=== PATIENT | male | born 1970 | race Caucasian/White ===

== ENCOUNTER 2017-08-21 09:28 | Emergency (ER) | payer BC ==
[~2017-08-21] VITALS: Ht 182.9 cm; Wt 72.6 kg
[~2017-08-21 09:28] MED LIST: AMOXIL 875 MG875 M1 PO; GENTAMICIN SU3 MG/ML OPHTHALMIC; HYDROCODONE-AP1 EAC6 PO; LISINOPRIL20 MG PO; MEDROLDOSEPACK PO; NOHOMEMEDICATIONS; NORCO 5-325 TA1 EACH PO; NORVASC 5 MG TAB5 MG PO; PENICILLIN V P500 MG PO; PROAIR HFA8.5 GM IH; PROAIR HFA8.5 GM INH; TESSALON200 MG PO; TOBRAMYCIN SULFA5 M1 OP; ZPAK PO
[2017-08-21] MEDS ORDERED: TRAZODONE HCL50 MG PO (09:38)
[2017-08-21 10:16] LABS: HEMATOCRIT 49.2 % (42.0-52.0); HEMOGLOBIN 16.2 gm/dL (14.0-18.0); MCH 27.1 pg (26.0-34.0); MPV 8.4 fl. (7.2-11.1); RBC 5.99 mil/uL (4.50-6.00); RDW-CV 14.3 % (10.5-14.5)
[2017-08-21 10:24] LABS: CALCIUM 9.6 mg/dL (8.5-10.1); POTASSIUM 3.8 mmol/L (3.5-5.1)
[2017-08-21 10:28] LABS: ALBUMIN 3.7 g/dL (3.4-5.0); TOTAL BILIRUBIN 0.5 mg/dL (<0.1-1.0); TOTAL PROTEIN 8.2 g/dL (6.4-8.2)
[2017-08-21 11:31] LABS: URINE BILIRUBIN NEGATIVE (Negative); URINE BLOOD 1+ (Negative); URINE CLARITY CLEAR; URINE COLOR YELLOW; URINE GLUCOSE-RANDOM NEGATIVE (Negative); URINE KETONES NEGATIVE (Negative); URINE LEUKOCYTES-REFLEX NEGATIVE (Negative); URINE NITRITE-REFLEX NEGATIVE (Negative); URINE PROTEIN NEGATIVE (Negative); URINE UROBILINOGEN 0.2 E.U./dl (0.2-1.0)
[2017-08-21 11:35] LABS: SQUAMOUS NONE SEEN /LPF (0-3)
[2017-08-21 11:36] LABS: BACTERIA-REFLEX None Seen /HPF (None Seen); CASTS None Seen /LPF (None Seen); CRYSTALS None Seen /LPF (None Seen); MUCUS None Seen strn/LPF (None Seen); URINE RBC 3-10 Few /HPF (0-2); URINE WBC-REFLEX None Seen /HPF (0-5)
[2017-08-21] MEDS ORDERED: DOXYCYCLINE 10100 MG PO (13:09)
[2017-08-21] MEDS ORDERED: NORCO 5-325 TA1 EACH PO (13:09)
[2017-08-21 13:28] VITALS: BP 112/79
== END 2017-08-21 13:29 | disposition home or self-care (01) ==
LOC: M.ERS 09:28
PROVIDERS: Emergency Medicine Emergency Medical Services
DX: N45.1 Epididymitis (principal); N34.2 Other urethritis; I10 Essential (primary) hypertension

== ENCOUNTER 2017-09-06 14:48 | Emergency (ER) | payer BC ==
[~2017-09-06] VITALS: Ht 182.9 cm; Wt 76.7 kg
[~2017-09-06 14:48] MED LIST changes: +DOXYCYCLINE 10100 MG PO; +TRAZODONE HCL50 MG PO
[2017-09-06 15:37] LABS: URINE BILIRUBIN NEGATIVE (Negative); URINE BLOOD 1+ (Negative); URINE CLARITY CLEAR; URINE COLOR YELLOW; URINE GLUCOSE-RANDOM NEGATIVE (Negative); URINE KETONES NEGATIVE (Negative); URINE LEUKOCYTES-REFLEX TRACE (Negative); URINE NITRITE-REFLEX NEGATIVE (Negative); URINE PROTEIN 1+ (Negative); URINE SPECIFIC GRAVITY >= 1.030 (1.005-1.030); URINE UROBILINOGEN 0.2 E.U./dl (0.2-1.0)
[2017-09-06 15:55] LABS: MUCUS >6 Heavy strn/LPF (None Seen)
[2017-09-06 15:57] LABS: CASTS None Seen /LPF (None Seen); SQUAMOUS 0-3 Few /LPF (0-3); URINE RBC 0-2 Rare /HPF (0-2); URINE WBC-REFLEX 6-15 Few /HPF (0-5)
[2017-09-06 15:58] LABS: CRYSTALS None Seen /LPF (None Seen)
[2017-09-06] MEDS ORDERED: DOXYCYCLINE 10100 M1 PO (15:58)
[2017-09-06 16:05] VITALS: BP 125/82
== END 2017-09-06 16:05 | disposition home or self-care (01) ==
LOC: M.ERS 14:48
PROVIDERS: Nurse Practitioner Family
DX: N45.1 Epididymitis (principal); N39.0 Urinary tract infection, site not specified; I10 Essential (primary) hypertension

== ENCOUNTER 2018-03-03 11:09 | Emergency (ER) | payer BC ==
[~2018-03-03] VITALS: Ht 182.9 cm; Wt 74.8 kg
[~2018-03-03 11:09] MED LIST changes: +DOXYCYCLINE 10100 M1 PO
[2018-03-03 11:28] LABS: URINE BILIRUBIN NEGATIVE (Negative); URINE BLOOD 1+ (Negative); URINE CLARITY CLEAR; URINE COLOR YELLOW; URINE GLUCOSE-RANDOM NEGATIVE (Negative); URINE KETONES NEGATIVE (Negative); URINE LEUKOCYTES-REFLEX NEGATIVE (Negative); URINE NITRITE-REFLEX NEGATIVE (Negative); URINE PROTEIN NEGATIVE (Negative); URINE SPECIFIC GRAVITY >= 1.030 (1.005-1.030)
[2018-03-03] MEDS ORDERED: NOHOMEMEDICATIONS (11:28)
[2018-03-03 11:46] LABS: SQUAMOUS NONE SEEN /LPF (0-3)
[2018-03-03 11:47] LABS: BACTERIA-REFLEX None Seen /HPF (None Seen); CRYSTALS None Seen /LPF (None Seen); MUCUS 0-3 Light strn/LPF (None Seen); URINE RBC 3-10 Few /HPF (0-2); URINE WBC-REFLEX None Seen /HPF (0-5)
[2018-03-03 12:10] VITALS: BP 117/78
[2018-03-03 12:19] LABS: CASTS None Seen /LPF (None Seen)
== END 2018-03-03 12:10 | disposition home or self-care (01) ==
LOC: M.ERS 11:09
PROVIDERS: Nurse Practitioner Family
DX: Z20.2 Contact with and (suspected) exposure to infections with a predominantly sexual mode of transmission (principal); F17.200 Nicotine dependence, unspecified, uncomplicated; I10 Essential (primary) hypertension

== ENCOUNTER 2019-02-08 20:55 | Emergency (ER) | payer OTHER ==
[~2019-02-08] VITALS: Ht 185.4 cm; Wt 79.2 kg
[2019-02-08] MEDS ORDERED: NORCO 5-325 TA1 EAC1 PO (21:34)
[2019-02-08] MEDS ORDERED: MEDROLDOSEPACK PO (21:34)
[2019-02-08] MEDS ORDERED: IBUPROFEN 600600 M1 PO (21:34)
[2019-02-08 22:13] VITALS: BP 124/69
--- NOTE | 2019-02-09 09:45 | EKG ---
[place] [address] ELECTROCARDIOGRAM REPORT Name: LUPIS ZARAGOZA [id number] Admission: 02/08/19 Attend Phys: Discharge: 02/08/19 Date of : 68 Report #: [id number] THIS REPORT FOR: //name// [facility] ED Test Date: 2019-02-08 Test Time: 21:52:11 Pat Name: LUPIS ZARAGOZA Department: Room: Gender: M [employer]: : 1970 Requested By: Marc Mckeon Order Number: [id number] MD: Mrak Snyder Measurements Intervals Hardesty Rate: 72 P: 73 OK: 142 QRS: 78 QRSD: 99 T: 70 QT: 405 QTc: 444 Interpretive Statements Sinus rhythm Left atrial enlargement RSR' in V1 or V2, probably normal variant No previous ECG available for comparison Electronically Signed On 02-09-2019 9:45:00 REGISTERED NURSE MATERNAL CHILD by Mark Snyder [email or web address] <ELECTRONICALLY SIGNED> By: Mark Snyder MD, [facility] 02/09/19 0945 215 215 Mark Snyder MD, FACC /EPI
== END 2019-02-08 22:13 | disposition home or self-care (01) ==
LOC: M.ERS 20:55
DX: M25.512 Pain in left shoulder (principal); I10 Essential (primary) hypertension